=== PATIENT | male | born 1935 | race African-American/Black ===

== ENCOUNTER 2021-05-13 13:01 | Emergency (ER) | payer OTHER ==
[~2021-05-13] VITALS: Ht 182.9 cm; Wt 91.0 kg
[2021-05-13] MEDS ORDERED: SODIUM CHLORIDE 0.9% 1,000 ML IV ONE (13:30)
[2021-05-13 14:06] LABS: BASOPHILS % 0.7 % (0.0-2.0); EOSINOPHILS % 2.5 % (0.0-5.0); HEMATOCRIT. 26.7 % (42.0-52.0); HEMOGLOBIN. 8.8 g/dL (14.0-18.0); LYMPHOCYTES % 22.9 % (20.0-50.0); MEAN CORPUSCULAR HEMOGLOBIN 32.7 pg (28.0-32.0); MEAN CORPUSCULAR VOLUME 99.8 fL (80.0-94.0); MEAN PLATELET VOLUME 9.6 fl (7.4-10.4); MONOCYTES % 10.7 % (2.0-8.0); NEUTROPHILS % 63.2 % (40.0-76.0); PLATELET 131 x1000/uL (130-400); RED BLOOD CELL COUNT 2.67 mill/uL (4.7-6.1); RED CELL DISTRIBUTION WIDTH 14.9 % (11.6-14.6)
[2021-05-13 14:12] LABS: CHLORIDE 111 mEq/L (98-107)
[2021-05-13] MEDS ORDERED: INSULIN REGULAR (HUMULIN R) 300UNITS/3ML VIAL IV ONE (17:30)
[2021-05-13] MEDS ORDERED: SODIUM POLYSTYRENE SULFONATE 15 G/60 ML BOT PO ONE (17:30)
[2021-05-13] MEDS ORDERED: DEXTROSE 50% WATER 50ML SYRINGE IV ONE (17:30)
[2021-05-13 20:18] VITALS: BP 172/88
== END 2021-05-13 20:21 | disposition home or self-care (01) ==
LOC: ER 13:01
DX: I95.9 Hypotension, unspecified (principal); E11.22 Type 2 diabetes mellitus with diabetic chronic kidney disease; I12.9 Hypertensive chronic kidney disease with stage 1 through stage 4 chronic kidney disease, or unspecified chronic kidney disease; N18.9 Chronic kidney disease, unspecified; E87.5 Hyperkalemia
CPT/HCPCS: 36415; 80053; 82962; 84484; 85025; 93005; 96361; 96374; 96375; 99285; J1815; J7030

== ENCOUNTER 2021-08-18 13:50 | Emergency (ER) | payer BC, OTHER ==
[~2021-08-18] VITALS: Ht 182.9 cm; Wt 91.0 kg
[2021-08-18 15:02] LABS: CHLORIDE 114 mEq/L (98-107)
[2021-08-18 15:17] LABS: BASOPHILS % 0.3 % (0.0-2.0); EOSINOPHILS % 2.2 % (0.0-5.0); HEMATOCRIT. 31.1 % (42.0-52.0); HEMOGLOBIN. 9.9 g/dL (14.0-18.0); LYMPHOCYTES % 20.8 % (20.0-50.0); MEAN CORPUSCULAR HEMOGLOBIN 30.4 pg (28.0-32.0); MEAN CORPUSCULAR VOLUME 95.6 fL (80.0-94.0); MEAN PLATELET VOLUME 9.5 fl (7.4-10.4); MONOCYTES % 8.3 % (2.0-8.0); NEUTROPHILS % 68.4 % (40.0-76.0); PLATELET 140 x1000/uL (130-400); RED BLOOD CELL COUNT 3.25 mill/uL (4.7-6.1); RED CELL DISTRIBUTION WIDTH 14.7 % (11.6-14.6)
[2021-08-18 17:12] VITALS: BP 146/76
== END 2021-08-18 17:53 | disposition home or self-care (01) ==
LOC: ER 13:50
DX: T46.5X1A Poisoning by other antihypertensive drugs, accidental (unintentional), initial encounter (principal); R42 Dizziness and giddiness; R53.1 Weakness; I12.9 Hypertensive chronic kidney disease with stage 1 through stage 4 chronic kidney disease, or unspecified chronic kidney disease; N18.9 Chronic kidney disease, unspecified; D53.9 Nutritional anemia, unspecified; Y92.018 Other place in single-family (private) house as the place of occurrence of the external cause
CPT/HCPCS: 36415; 71045; 80053; 83880; 84484; 85025; 87426; 93005; 99285

== ENCOUNTER 2021-09-24 19:05 | Inpatient (IN) | payer BC, MEDICARE, OTHER ==
[~2021-09-24] VITALS: Ht 182.9 cm; Wt 85.7 kg
[~2021-09-24 19:05] MED LIST: ASPI81TA47 PO; ATOR10TA69 PO; CARV12.545 PO; DULO30CA52 PO; HYDR100T26 PO; LEVO100T9 PO; MAGN400T26 MT; PANT40TA51 PO
[2021-09-24] MEDS ORDERED: SODIUM CHLORIDE 0.9% 500 ML IV ONE (20:00)
[2021-09-24 20:19] LABS: BASOPHILS % 1.5 % (0.0-2.0); EOSINOPHILS % 4.3 % (0.0-5.0); HEMATOCRIT. 29.2 % (42.0-52.0); HEMOGLOBIN. 9.5 g/dL (14.0-18.0); LYMPHOCYTES % 21.8 % (20.0-50.0); MEAN CORPUSCULAR HEMOGLOBIN 31.5 pg (28.0-32.0); MEAN CORPUSCULAR VOLUME 96.3 fL (80.0-94.0); MEAN PLATELET VOLUME 9.3 fl (7.4-10.4); MONOCYTES % 7.7 % (2.0-8.0); NEUTROPHILS % 64.7 % (40.0-76.0); PLATELET 167 x1000/uL (130-400); RED BLOOD CELL COUNT 3.03 mill/uL (4.7-6.1); RED CELL DISTRIBUTION WIDTH 15.4 % (11.6-14.6)
[2021-09-24 20:20] LABS: CHLORIDE 117 mEq/L (98-107)
[2021-09-25 03:12] LABS: CLARITY URINE CLOUDY (CLEAR); COLOR URINE YELLOW (YELLOW); KETONES URINE NEGATIVE (NEGATIVE); LEUKOCYTE ESTERASE URINE 2+ (NEGATIVE); NITRITE URINE NEGATIVE (NEGATIVE); OCCULT BLOOD URINE NEGATIVE (NEGATIVE); PH URINE 5.5 (4.5-8.0); PROTEIN URINE 3+ (NEGATIVE); SPECIFIC GRAVITY URINE 1.015 (1.005-1.030); UROBILINOGEN URINE 0.2 E.U./dL (0.2-1.0)
[2021-09-25 09:30] VITALS: BP 183/84
[2021-09-25] MEDS ORDERED: ONDANSETRON HCL 4MG/2ML INJ IV PRN (09:30)
[2021-09-25] MEDS: AMLODIPINE 10MG TABLET PO SCH (10:29)
[2021-09-25] MEDS: HYDRALAZINE HCL 100MG TABLET PO SCH ×2 (10:30→20:34)
[2021-09-25] MEDS: ACETAMINOPHEN 325MG TABLET PO PRN (11:38)
[2021-09-25 12:00] VITALS: BP 173/82
[2021-09-25] MEDS: CARVEDILOL 3.125 MG TABLET PO SCH ×2 (13:24→20:34)
[2021-09-25 16:00] VITALS: BP 152/71
[2021-09-25 20:00] VITALS: BP 152/73
[2021-09-26] VITALS (7 sets, daily range): BP systolic 97–161; BP diastolic 49–85
[2021-09-26] MEDS: ACETAMINOPHEN 325MG TABLET PO PRN (02:28)
[2021-09-26] MEDS: ASPIRIN 81MG TABLET PO SCH (08:57)
[2021-09-26] MEDS: CARVEDILOL 3.125 MG TABLET PO SCH (08:58)
[2021-09-26] MEDS: AMLODIPINE 10MG TABLET PO SCH (08:58)
[2021-09-26] MEDS: HYDRALAZINE HCL 100MG TABLET PO SCH ×2 (08:58→21:07)
[2021-09-26] MEDS ORDERED: METOPROLOL TARTRATE 50MG TABLET PO SCH (10:00)
[2021-09-26 10:35] LABS: BASOPHILS % 0.6 % (0.0-2.0); EOSINOPHILS % 5.4 % (0.0-5.0); HEMATOCRIT. 28.6 % (42.0-52.0); HEMOGLOBIN. 9.6 g/dL (14.0-18.0); LYMPHOCYTES % 18.3 % (20.0-50.0); MEAN CORPUSCULAR HEMOGLOBIN 31.7 pg (28.0-32.0); MEAN CORPUSCULAR VOLUME 94.8 fL (80.0-94.0); MEAN PLATELET VOLUME 8.7 fl (7.4-10.4); MONOCYTES % 9.4 % (2.0-8.0); NEUTROPHILS % 66.3 % (40.0-76.0); PLATELET 154 x1000/uL (130-400); RED BLOOD CELL COUNT 3.02 mill/uL (4.7-6.1); RED CELL DISTRIBUTION WIDTH 15.1 % (11.6-14.6)
[2021-09-26 10:47] LABS: PHOSPHORUS 3.6 mg/dL (2.5-4.9)
[2021-09-26 14:24] LABS: BG BASE EXCESS -5.5 mmol/L (-2.0-2.0); BG CARBOXYHEMOGLOBIN 0.3 % (0.5-1.5); BG DEOXYHEMOGLOBIN 3.8 % (0.0-5.0); BG FRACTION INSPIRED OXYGEN 21; BG HCO3 ACT 18.9 mmol/L (22.0-26.0); BG METHEMOGLOBIN 0.3 % (0.0-1.5); BG OXYGEN SATURATION 96.2 % (92.0-98.5); BG OXYHEMOGLOBIN 95.6 % (94.0-97.0); BG PCO2 33.2 mmHg (35.0-45.0); BG PH 7.374 (7.350-7.450); BG PO2 90.9 mmHg (75.0-100.0); BG SAMPLE SITE RIGHT RADIAL; BG TOTAL HEMOGLOBIN 10.1 g/dL (12.0-18.0); BG VENT MODE ROOM AIR
[2021-09-26] MEDS ORDERED: EPOETIN ALFA 4000UNITS/ML VIAL SUBCUT SCH (21:00)
[2021-09-26] MEDS: METOPROLOL TARTRATE 25MG TABLET PO SCH (21:07)
[2021-09-27] VITALS: BP 111/78
[2021-09-27 04:00] VITALS: BP 138/68
[2021-09-27 07:46] LABS: HEMATOCRIT. 30.2 % (42.0-52.0); HEMOGLOBIN. 10.2 g/dL (14.0-18.0); MEAN CORPUSCULAR HEMOGLOBIN 31.8 pg (28.0-32.0); MEAN PLATELET VOLUME 9.6 fl (7.4-10.4); PLATELET 161 x1000/uL (130-400); RED BLOOD CELL COUNT 3.22 mill/uL (4.7-6.1); RED CELL DISTRIBUTION WIDTH 15.1 % (11.6-14.6)
[2021-09-27 08:00] VITALS: BP_SYST 109; BP_SYST 122; BP_DIAS 76; BP_DIAS 83
[2021-09-27 08:05] LABS: PHOSPHORUS 4.1 mg/dL (2.5-4.9)
[2021-09-27] MEDS: AMLODIPINE 10MG TABLET PO SCH ×2 (09:00→16:20)
[2021-09-27] MEDS: METOPROLOL TARTRATE 25MG TABLET PO SCH (09:00)
[2021-09-27] MEDS: HYDRALAZINE HCL 100MG TABLET PO SCH ×2 (09:00→20:40)
[2021-09-27] MEDS: ASPIRIN 81MG TABLET PO SCH (09:28)
[2021-09-27] MEDS ORDERED: SODIUM POLYSTYRENE SULFONATE 15 G/60 ML BOT PO NR (09:45)
[2021-09-27 11:18] LABS: T4 FREE 1.27 ng/dL (0.76-1.46)
[2021-09-27 12:00] VITALS: BP 151/78
[2021-09-27 16:00] VITALS: BP 164/79
[2021-09-27] MEDS: AMIODARONE HCL 200 MG TABLET PO SCH (16:21)
[2021-09-27 16:33] LABS: PLATELET ESTIMATE NORMAL
[2021-09-27 20:00] VITALS: BP_SYST 134; BP_SYST 159; BP_DIAS 61; BP_DIAS 75
[2021-09-27] MEDS: ACETAMINOPHEN 325MG TABLET PO PRN (20:43)
[2021-09-27] MEDS ORDERED: CEFTRIAXONE 1 G PREMIX 50 ML IV SCH (22:00)
[2021-09-28] VITALS: BP 153/80
[2021-09-28] MEDS: CEFTRIAXONE 1,000 MG in DEXTROSE 5% WATER 50 ML IV SCH ×2 (00:21→20:31)
[2021-09-28 04:00] VITALS: BP 135/61
[2021-09-28 07:44] LABS: BASOPHILS % 0.7 % (0.0-2.0); EOSINOPHILS % 5.8 % (0.0-5.0); HEMATOCRIT. 29.4 % (42.0-52.0); HEMOGLOBIN. 9.8 g/dL (14.0-18.0); LYMPHOCYTES % 28.5 % (20.0-50.0); MEAN CORPUSCULAR HEMOGLOBIN 31.7 pg (28.0-32.0); MEAN CORPUSCULAR VOLUME 94.7 fL (80.0-94.0); MEAN PLATELET VOLUME 9.3 fl (7.4-10.4); PLATELET 163 x1000/uL (130-400)
[2021-09-28 08:00] VITALS: BP 143/75
[2021-09-28] MEDS: ASPIRIN 81MG TABLET PO SCH (08:11)
[2021-09-28] MEDS: AMIODARONE HCL 200 MG TABLET PO SCH (08:12)
[2021-09-28] MEDS: HYDRALAZINE HCL 100MG TABLET PO SCH (08:12)
[2021-09-28] MEDS: AMLODIPINE 10MG TABLET PO SCH (08:12)
[2021-09-28 12:00] VITALS: BP_SYST 132; BP_SYST 133; BP_SYST 84; BP_DIAS 50; BP_DIAS 66; BP_DIAS 68
[2021-09-28 16:00] VITALS: BP 157/77
[2021-09-28 20:00] VITALS: BP_SYST 118; BP_SYST 140; BP_DIAS 80; BP_DIAS 82
[2021-09-28] MEDS: HYDRALAZINE HCL 50MG TABLET PO SCH (20:30)
[2021-09-29] VITALS (7 sets, daily range): BP systolic 99–157; BP diastolic 52–79
[2021-09-29] MEDS: ASPIRIN 81MG TABLET PO SCH (09:29)
[2021-09-29] MEDS: HYDRALAZINE HCL 50MG TABLET PO SCH ×2 (09:30→21:25)
[2021-09-29] MEDS: AMLODIPINE 10MG TABLET PO SCH (09:30)
[2021-09-29] MEDS: AMIODARONE HCL 200 MG TABLET PO SCH (09:30)
[2021-09-29] MEDS ORDERED: AMLO10TA80 PO ×2 (09:51)
[2021-09-29] MEDS ORDERED: CARV6.2548 MT (09:51)
[2021-09-29] MEDS ORDERED: HYDR-4135 PO (09:51)
[2021-09-29] MEDS ORDERED: AMI2 PO (09:52)
[2021-09-29 19:05] LABS: VITAMIN B12 SERUM 846 pg/mL (211-911)
[2021-09-29] MEDS: CEFTRIAXONE 1,000 MG in DEXTROSE 5% WATER 50 ML IV SCH (23:35)
[2021-09-30] VITALS (7 sets, daily range): BP systolic 103–146; BP diastolic 62–78
[2021-09-30] MEDS: AMLODIPINE 10MG TABLET PO SCH (08:46)
[2021-09-30] MEDS: HYDRALAZINE HCL 50MG TABLET PO SCH (08:46)
[2021-09-30] MEDS: AMIODARONE HCL 200 MG TABLET PO SCH (09:49)
[2021-09-30] MEDS: ASPIRIN 81MG TABLET PO SCH (09:53)
[2021-09-30] MEDS: ACETAMINOPHEN 325MG TABLET PO PRN (17:11)
[2021-09-30] MEDS: CEFTRIAXONE 1,000 MG in DEXTROSE 5% WATER 50 ML IV SCH (22:29)
[2021-09-30] MEDS ORDERED: MAGNESIUM/ALUMINUM HYDROXIDE/SIMETHICONE 30ML UDC PO PRN (22:45)
[2021-10-01] VITALS: BP 127/70
[2021-10-01 04:00] VITALS: BP 150/85
[2021-10-01 08:00] VITALS: BP_SYST 105; BP_SYST 139; BP_SYST 77; BP_DIAS 47; BP_DIAS 68; BP_DIAS 80
[2021-10-01] MEDS: AMIODARONE HCL 200 MG TABLET PO SCH (09:54)
[2021-10-01] MEDS: ASPIRIN 81MG TABLET PO SCH (09:54)
[2021-10-01 12:00] VITALS: BP_SYST 113; BP_SYST 88; BP_SYST 95; BP_DIAS 54; BP_DIAS 57; BP_DIAS 71
[2021-10-01] MEDS: MIDODRINE HCL 5MG TABLET PO SCH ×2 (14:53→18:33)
[2021-10-01 16:00] VITALS: BP_SYST 113; BP_SYST 124; BP_SYST 169; BP_DIAS 60; BP_DIAS 79; BP_DIAS 88
[2021-10-01 20:00] VITALS: BP_SYST 122; BP_SYST 126; BP_SYST 162; BP_DIAS 71; BP_DIAS 78; BP_DIAS 83
[2021-10-01] MEDS: CEFTRIAXONE 1,000 MG in DEXTROSE 5% WATER 50 ML IV SCH (22:07)
[2021-10-02] VITALS: BP 141/75
[2021-10-02 04:00] VITALS: BP 128/63
[2021-10-02 08:00] VITALS: BP_SYST 117; BP_SYST 130; BP_SYST 85; BP_DIAS 50; BP_DIAS 69; BP_DIAS 75
[2021-10-02] MEDS ORDERED: MIDODRINE HCL 2.5MG TABLET PO SCH ×2 (09:00→13:00)
[2021-10-02] MEDS: ASPIRIN 81MG TABLET PO SCH (10:03)
[2021-10-02] MEDS: AMIODARONE HCL 200 MG TABLET PO SCH (10:03)
[2021-10-02 12:00] VITALS: BP_SYST 142; BP_SYST 154; BP_SYST 92; BP_DIAS 53; BP_DIAS 73; BP_DIAS 84
[2021-10-02 16:00] VITALS: BP_SYST 114; BP_SYST 152; BP_SYST 84; BP_DIAS 49; BP_DIAS 72; BP_DIAS 77
[2021-10-02 18:11] VITALS: BP 114/72
== END 2021-10-02 18:45 | disposition home health service (06) | DRG 73 ==
LOC: ER 19:05 → EDBEDREQTM 22:26 → EDBEDREQ 22:26 → MICUSO 22:31 → 8WST 09-25 09:37
PROVIDERS: ADMIT Internal Medicine; ATTEND Internal Medicine
PROC: 4A10X4Z Monitoring of Central Nervous Electrical Activity, External Approach (ICD-10-PCS; principal; 2021-09-30)
DX: G90.8 Other disorders of autonomic nervous system (principal); R65.11 Systemic inflammatory response syndrome (SIRS) of non-infectious origin with acute organ dysfunction; I13.0 Hypertensive heart and chronic kidney disease with heart failure and stage 1 through stage 4 chronic kidney disease, or unspecified chronic kidney disease; I50.32 Chronic diastolic (congestive) heart failure; E44.0 Moderate protein-calorie malnutrition; N17.9 Acute kidney failure, unspecified; N18.4 Chronic kidney disease, stage 4 (severe); N39.0 Urinary tract infection, site not specified; E87.8 Other disorders of electrolyte and fluid balance, not elsewhere classified; D64.9 Anemia, unspecified; E11.22 Type 2 diabetes mellitus with diabetic chronic kidney disease; E03.9 Hypothyroidism, unspecified; E78.5 Hyperlipidemia, unspecified; I48.0 Paroxysmal atrial fibrillation; Z20.822 Contact with and (suspected) exposure to COVID-19; E11.43 Type 2 diabetes mellitus with diabetic autonomic (poly)neuropathy; I27.20 Pulmonary hypertension, unspecified; I34.0 Nonrheumatic mitral (valve) insufficiency; I95.1 Orthostatic hypotension; Z82.49 Family history of ischemic heart disease and other diseases of the circulatory system; Z86.73 Personal history of transient ischemic attack (TIA), and cerebral infarction without residual deficits; Z83.3 Family history of diabetes mellitus; Z90.49 Acquired absence of other specified parts of digestive tract; Z79.899 Other long term (current) drug therapy; Z79.82 Long term (current) use of aspirin; Z68.25 Body mass index [BMI] 25.0-25.9, adult; Z87.19 Personal history of other diseases of the digestive system
CPT/HCPCS: 36415; 36600; 70551; 71045; 76770; 80048; 80053; 81003; 82375; 82550; 82607; 82805; 83735; 83880; 84100; 84439; 84443; 84484; 85025; 87426; 93005; 93306; 93880; 95816; 97110; 97162; 97166; 97530; 99285; J0696; J0885; J7040; J7060

== ENCOUNTER 2022-02-17 21:46 | Inpatient (IN) | payer MEDICARE ==
[~2022-02-17] VITALS: Ht 172.7 cm; Wt 92.6 kg
[~2022-02-17 21:46] MED LIST changes: +AMI2 PO; -CARV12.545 PO; +CARV6.2548 MT; +HYDR-4135 PO; -HYDR100T26 PO
[2022-02-17] MEDS ORDERED: FUROSEMIDE 40MG/4ML VIAL IV ONE (22:00)
[2022-02-17] MEDS ORDERED: NITROGLYCERIN 0.4MG TABLET SL SL PRN (22:00)
[2022-02-17 22:28] LABS: CHLORIDE 110 mEq/L (98-107)
[2022-02-17] MEDS ORDERED: FUROSEMIDE 100MG/10ML VIAL IV NR (22:36)
[2022-02-17 22:40] LABS: BASOPHILS % 0.2 % (0.0-2.0); EOSINOPHILS % 0.4 % (0.0-5.0); HEMATOCRIT. 26.2 % (42.0-52.0); HEMOGLOBIN. 8.5 g/dL (14.0-18.0); LYMPHOCYTES % 15.2 % (20.0-50.0); MEAN CORPUSCULAR HEMOGLOBIN 31.4 pg (28.0-32.0); MEAN CORPUSCULAR VOLUME 97.2 fL (80.0-94.0); MEAN PLATELET VOLUME 9.7 fl (7.4-10.4); MONOCYTES % 6.5 % (2.0-8.0); NEUTROPHILS % 77.7 % (40.0-76.0); PLATELET 191 x1000/uL (130-400); RED BLOOD CELL COUNT 2.69 mill/uL (4.7-6.1); RED CELL DISTRIBUTION WIDTH 16.1 % (11.6-14.6)
[2022-02-17] MEDS ORDERED: INSULIN REGULAR (HUMULIN R) 300UNITS/3ML VIAL IV NR (22:45)
[2022-02-17] MEDS ORDERED: DEXTROSE 50% WATER 50ML SYRINGE IV NR (22:45)
[2022-02-17] MEDS ORDERED: SODIUM BICARBONATE 8.4% 1 MEQ/ML 50ML SYR IV NR (22:45)
[2022-02-17] MEDS ORDERED: ALBUTEROL (0.083%) 2.5MG/3ML NEB HHN NR (22:45)
[2022-02-17] MEDS ORDERED: CALCIUM CHLORIDE 1GM/10ML SYR IV NR (22:45)
[2022-02-18] VITALS (13 sets, daily range): BP systolic 118–139; BP diastolic 64–85
[2022-02-18] MEDS ORDERED: NALOXONE HCL 0.4MG/ML VIAL IV PRN (04:30)
[2022-02-18] MEDS: HYDRALAZINE HCL 50MG TABLET PO SCH ×3 (05:34→21:58)
[2022-02-18 06:19] LABS: BASOPHILS % 0.2 % (0.0-2.0); EOSINOPHILS % 0.1 % (0.0-5.0); HEMOGLOBIN. 8.7 g/dL (14.0-18.0); LYMPHOCYTES % 14.5 % (20.0-50.0); MEAN CORPUSCULAR HEMOGLOBIN 32.1 pg (28.0-32.0); MEAN CORPUSCULAR VOLUME 96.1 fL (80.0-94.0); MEAN PLATELET VOLUME 9.4 fl (7.4-10.4); MONOCYTES % 6.6 % (2.0-8.0); NEUTROPHILS % 78.6 % (40.0-76.0); PLATELET 178 x1000/uL (130-400); RED CELL DISTRIBUTION WIDTH 15.9 % (11.6-14.6)
[2022-02-18 06:35] LABS: CHLORIDE 112 mEq/L (98-107)
[2022-02-18 06:57] LABS: HDL CHOLESTEROL 33 mg/dL (40-59); LDL CHOLESTEROL 63 mg/dL (5-100)
[2022-02-18] MEDS: CARVEDILOL 6.25 MG TABLET PO SCH ×2 (09:00→21:58)
[2022-02-18] MEDS: ASPIRIN 81MG TABLET PO SCH (09:11)
[2022-02-18] MEDS: AMIODARONE HCL 200 MG TABLET PO SCH (09:11)
[2022-02-18] MEDS: PANTOPRAZOLE 40MG DR TABLET PO SCH (09:12)
[2022-02-18] MEDS: DULOXETINE HCL 30MG DR CAPSULE PO SCH (09:32)
[2022-02-18 09:47] LABS: BG BASE EXCESS -9.3 mmol/L (-2.0-2.0); BG CARBOXYHEMOGLOBIN 0.3 % (0.5-1.5); BG DEOXYHEMOGLOBIN 6.2 % (0.0-5.0); BG FRACTION INSPIRED OXYGEN 55; BG HCO3 ACT 15.9 mmol/L (22.0-26.0); BG METHEMOGLOBIN 0.3 % (0.0-1.5); BG OXYGEN SATURATION 93.8 % (92.0-98.5); BG OXYHEMOGLOBIN 93.2 % (94.0-97.0); BG PCO2 32.3 mmHg (35.0-45.0); BG PH 7.311 (7.350-7.450); BG PO2 75.7 mmHg (75.0-100.0); BG SAMPLE SITE RIGHT RADIAL; BG TOTAL RESPIRATORY RATE 26 b/min; BG VENT MODE MASK - BIPAP
[2022-02-18] MEDS: LEVOTHYROXINE SODIUM 100MCG TABLET PO SCH (10:25)
[2022-02-18] MEDS: ACETAMINOPHEN 325MG TABLET PO PRN ×2 (10:27→19:54)
[2022-02-18] MEDS ORDERED: CEFTRIAXONE 1 G PREMIX 50 ML IV SCH (15:15)
[2022-02-18] MEDS ORDERED: AZITHROMYCIN 500MG/250ML 250 ML IV SCH (15:15)
[2022-02-18] MEDS: CEFTRIAXONE 1,000 MG in DEXTROSE 5% WATER 50 ML IV SCH (16:06)
[2022-02-18] MEDS: IPRATROPIUM/ALBUTEROL 0.5-3(2.5)MG/3ML NEB HHN PRN (16:46)
[2022-02-18] MEDS: AZITHROMYCIN 500MG in DEXTROSE 5% WATER 250ML IV SCH (17:07)
[2022-02-18] MEDS ORDERED: SODIUM POLYSTYRENE SULFONATE 15 G/60 ML BOT PO NR (18:44)
[2022-02-18] MEDS: IPRATROPIUM/ALBUTEROL 0.5-3(2.5)MG/3ML NEB HHN SCH (20:38)
[2022-02-18] MEDS: HYDROCODONE/ACETAMINOPHEN 5/325MG TABLET PO PRN (21:56)
[2022-02-18] MEDS: ATORVASTATIN CALCIUM 10MG TABLET PO SCH (21:58)
[2022-02-18 22:03] LABS: CHLORIDE 112 mEq/L (98-107)
[2022-02-18 22:11] LABS: TOTAL IRON BINDING CAPACITY 332 ug/dL (250-450)
[2022-02-19] VITALS (12 sets, daily range): BP systolic 103–139; BP diastolic 62–76
[2022-02-19] MEDS: IPRATROPIUM/ALBUTEROL 0.5-3(2.5)MG/3ML NEB HHN SCH ×4 (01:54→20:04)
[2022-02-19] MEDS: HYDRALAZINE HCL 50MG TABLET PO SCH ×3 (05:22→21:14)
[2022-02-19] MEDS: HYDROCODONE/ACETAMINOPHEN 5/325MG TABLET PO PRN (05:23)
[2022-02-19 06:30] LABS: BASOPHILS % 0.3 % (0.0-2.0); EOSINOPHILS % 0.3 % (0.0-5.0); HEMATOCRIT. 25.1 % (42.0-52.0); HEMOGLOBIN. 8.2 g/dL (14.0-18.0); LYMPHOCYTES % 12.3 % (20.0-50.0); MEAN CORPUSCULAR VOLUME 98.5 fL (80.0-94.0); MEAN PLATELET VOLUME 9.4 fl (7.4-10.4); MONOCYTES % 4.8 % (2.0-8.0); NEUTROPHILS % 82.3 % (40.0-76.0); PLATELET 177 x1000/uL (130-400); RED BLOOD CELL COUNT 2.55 mill/uL (4.7-6.1); RED CELL DISTRIBUTION WIDTH 15.9 % (11.6-14.6)
[2022-02-19] MEDS: ASPIRIN 81MG TABLET PO SCH (08:52)
[2022-02-19] MEDS: PANTOPRAZOLE 40MG DR TABLET PO SCH (08:52)
[2022-02-19] MEDS: DULOXETINE HCL 30MG DR CAPSULE PO SCH (08:52)
[2022-02-19] MEDS: AMIODARONE HCL 200 MG TABLET PO SCH (08:53)
[2022-02-19] MEDS: AZITHROMYCIN 500MG in DEXTROSE 5% WATER 250ML IV SCH (08:53)
[2022-02-19] MEDS: LEVOTHYROXINE SODIUM 100MCG TABLET PO SCH (08:53)
[2022-02-19] MEDS: CARVEDILOL 6.25 MG TABLET PO SCH ×2 (09:00→21:14)
[2022-02-19] MEDS ORDERED: IRON SUCROSE COMPLEX 100 MG/5 ML ML IV SCH (09:00)
[2022-02-19] MEDS: ACETAMINOPHEN 325MG TABLET PO PRN ×2 (11:40→18:08)
[2022-02-19 11:57] LABS: INR 1.1; PROTHROMBIN TIME 11.4 sec (9.6-11.0)
[2022-02-19] MEDS ORDERED: LIDOCAINE HCL 1% 10 MG/ML 10ML VIAL ONE (12:16)
[2022-02-19 13:32] LABS: HEPATITIS B SURFACE ANTIGEN NEGATIVE
[2022-02-19] MEDS: CEFTRIAXONE 1,000 MG in DEXTROSE 5% WATER 50 ML IV SCH (16:23)
[2022-02-19] MEDS: ATORVASTATIN CALCIUM 10MG TABLET PO SCH (21:14)
[2022-02-20] VITALS (44 sets, daily range): BP systolic 90–130; BP diastolic 44–90
[2022-02-20] MEDS: IPRATROPIUM/ALBUTEROL 0.5-3(2.5)MG/3ML NEB HHN SCH ×4 (01:12→19:37)
[2022-02-20] MEDS: HYDRALAZINE HCL 50MG TABLET PO SCH ×3 (05:11→21:09)
[2022-02-20] MEDS: ACETAMINOPHEN 325MG TABLET PO PRN (06:06)
[2022-02-20 07:14] LABS: BASOPHILS % 0.2 % (0.0-2.0); EOSINOPHILS % 0.2 % (0.0-5.0); HEMOGLOBIN. 7.6 g/dL (14.0-18.0); LYMPHOCYTES % 9.2 % (20.0-50.0); MEAN CORPUSCULAR HEMOGLOBIN 32.1 pg (28.0-32.0); MEAN CORPUSCULAR VOLUME 97.2 fL (80.0-94.0); MEAN PLATELET VOLUME 9.7 fl (7.4-10.4); MONOCYTES % 3.4 % (2.0-8.0); PLATELET 162 x1000/uL (130-400); RED BLOOD CELL COUNT 2.36 mill/uL (4.7-6.1); RED CELL DISTRIBUTION WIDTH 15.5 % (11.6-14.6)
[2022-02-20 11:45] LABS: FOLIC ACID (FOLATE) SERUM 9.6 ng/mL (>5.38)
[2022-02-20] MEDS: AZITHROMYCIN 500MG in DEXTROSE 5% WATER 250ML IV SCH (11:45)
[2022-02-20] MEDS: DULOXETINE HCL 30MG DR CAPSULE PO SCH (11:46)
[2022-02-20] MEDS: AMIODARONE HCL 200 MG TABLET PO SCH (11:46)
[2022-02-20] MEDS: CARVEDILOL 6.25 MG TABLET PO SCH ×2 (11:46→20:45)
[2022-02-20] MEDS: FAMOTIDINE 20MG TABLET PO SCH (11:46)
[2022-02-20] MEDS: LEVOTHYROXINE SODIUM 100MCG TABLET PO SCH (12:05)
[2022-02-20 13:39] LABS: BG CARBOXYHEMOGLOBIN 0.3 % (0.5-1.5); BG DEOXYHEMOGLOBIN 4.1 % (0.0-5.0); BG FRACTION INSPIRED OXYGEN 100; BG HCO3 ACT 24.4 mmol/L (22.0-26.0); BG OXYGEN SATURATION 95.9 % (92.0-98.5); BG OXYHEMOGLOBIN 95.6 % (94.0-97.0); BG PCO2 38.3 mmHg (35.0-45.0); BG PH 7.422 (7.350-7.450); BG PO2 85.6 mmHg (75.0-100.0); BG SAMPLE SITE RIGHT RADIAL; BG TOTAL HEMOGLOBIN 8.7 g/dL (12.0-18.0); BG VENT MODE MASK - BIPAP
[2022-02-20] MEDS ORDERED: FENTANYL 2500MCG/250ML PMX 250 ML IV ONE (14:15)
[2022-02-20] MEDS ORDERED: MORPHINE SULFATE 4 MG/ML CPJ (NOT FOR IM USE) IV SCH (14:30)
[2022-02-20 15:22] LABS: BG BASE EXCESS 0.2 mmol/L (-2.0-2.0); BG CARBOXYHEMOGLOBIN 0.3 % (0.5-1.5); BG DEOXYHEMOGLOBIN 11.8 % (0.0-5.0); BG FRACTION INSPIRED OXYGEN 100; BG HCO3 ACT 25.7 mmol/L (22.0-26.0); BG OXYGEN SATURATION 88.2 % (92.0-98.5); BG OXYHEMOGLOBIN 87.9 % (94.0-97.0); BG PCO2 45.5 mmHg (35.0-45.0); BG PH 7.369 (7.350-7.450); BG PO2 57.5 mmHg (75.0-100.0); BG SAMPLE SITE RIGHT RADIAL; BG TOTAL HEMOGLOBIN 8.1 g/dL (12.0-18.0); BG VENT MODE VENT - AC
[2022-02-20] MEDS: PROPOFOL 10MG/ML 100ML 100 ML IV PRN ×2 (15:32→18:08)
[2022-02-20] MEDS ORDERED: FENTANYL CITRATE 2,500 MCG in SODIUM CHLORIDE 0.9% 200 ML IV PRN (16:00)
[2022-02-20] MEDS: CEFTRIAXONE 1,000 MG in DEXTROSE 5% WATER 50 ML IV SCH (16:16)
[2022-02-20] MEDS: FENTANYL 2500MCG/250ML PMX 250 ML IV PRN (16:34)
[2022-02-20 18:44] LABS: BG BASE EXCESS 0.7 mmol/L (-2.0-2.0); BG FRACTION INSPIRED OXYGEN 100; BG HCO3 ACT 26.6 mmol/L (22.0-26.0); BG PO2 95.6 mmHg (75.0-100.0); BG SAMPLE SITE RIGHT RADIAL; BG TOTAL RESPIRATORY RATE 0 b/min; BG VENT MODE VENT - AC
[2022-02-20] MEDS: ATORVASTATIN CALCIUM 10MG TABLET PO SCH (20:44)
[2022-02-21] VITALS (70 sets, daily range): BP systolic 82–158; BP diastolic 47–81
[2022-02-21] MEDS: PROPOFOL 10MG/ML 100ML 100 ML IV PRN (00:29)
[2022-02-21] MEDS: IPRATROPIUM/ALBUTEROL 0.5-3(2.5)MG/3ML NEB HHN SCH ×4 (02:00→20:26)
[2022-02-21] MEDS: NOREPINEPHRINE 32 MG in DEXT 5% WATER 218 ML IV PRN (04:02)
[2022-02-21 05:14] LABS: BASOPHILS % 0.1 % (0.0-2.0); EOSINOPHILS % 0.4 % (0.0-5.0); HEMATOCRIT. 27.8 % (42.0-52.0); HEMOGLOBIN. 9.1 g/dL (14.0-18.0); LYMPHOCYTES % 15.3 % (20.0-50.0); MEAN CORPUSCULAR HEMOGLOBIN 31.6 pg (28.0-32.0); MEAN PLATELET VOLUME 9.3 fl (7.4-10.4); MONOCYTES % 2.1 % (2.0-8.0); NEUTROPHILS % 82.1 % (40.0-76.0); PLATELET 158 x1000/uL (130-400); RED BLOOD CELL COUNT 2.87 mill/uL (4.7-6.1); RED CELL DISTRIBUTION WIDTH 15.4 % (11.6-14.6)
[2022-02-21] MEDS: LEVOTHYROXINE SODIUM 100MCG TABLET PO SCH (05:36)
[2022-02-21] MEDS: HYDRALAZINE HCL 50MG TABLET PO SCH ×3 (05:37→21:44)
[2022-02-21 07:59] LABS: BG BASE EXCESS -0.1 mmol/L (-2.0-2.0); BG CARBOXYHEMOGLOBIN 0.2 % (0.5-1.5); BG DEOXYHEMOGLOBIN 0.7 % (0.0-5.0); BG HCO3 ACT 27.6 mmol/L (22.0-26.0); BG METHEMOGLOBIN 0.2 % (0.0-1.5); BG OXYGEN SATURATION 99.3 % (92.0-98.5); BG OXYHEMOGLOBIN 98.9 % (94.0-97.0); BG PCO2 64.2 mmHg (35.0-45.0); BG PH 7.252 (7.350-7.450); BG PO2 296.4 mmHg (75.0-100.0); BG SAMPLE SITE RIGHT RADIAL; BG TOTAL HEMOGLOBIN 8.4 g/dL (12.0-18.0); BG VENT MODE VENT - AC
[2022-02-21] MEDS ORDERED: DOPAMINE 400MG/250ML PREMIX 250 ML IV PRN (08:15)
[2022-02-21] MEDS: DULOXETINE HCL 30MG DR CAPSULE PO SCH (09:00)
[2022-02-21] MEDS: FAMOTIDINE 20MG TABLET PO SCH (09:00)
[2022-02-21] MEDS: AMIODARONE HCL 200 MG TABLET PO SCH (09:00)
[2022-02-21] MEDS: CARVEDILOL 6.25 MG TABLET PO SCH ×2 (09:00→20:10)
[2022-02-21] MEDS: AZITHROMYCIN 500MG in DEXTROSE 5% WATER 250ML IV SCH (09:22)
[2022-02-21 09:40] LABS: BG BASE EXCESS -2.9 mmol/L (-2.0-2.0); BG CARBOXYHEMOGLOBIN 0.3 % (0.5-1.5); BG DEOXYHEMOGLOBIN 6.7 % (0.0-5.0); BG HCO3 ACT 24.5 mmol/L (22.0-26.0); BG METHEMOGLOBIN 0.1 % (0.0-1.5); BG OXYGEN SATURATION 93.3 % (92.0-98.5); BG OXYHEMOGLOBIN 92.9 % (94.0-97.0); BG PCO2 56.3 mmHg (35.0-45.0); BG PH 7.256 (7.350-7.450); BG PO2 79.4 mmHg (75.0-100.0); BG SAMPLE SITE RIGHT RADIAL; BG TOTAL HEMOGLOBIN 9.5 g/dL (12.0-18.0); BG VENT MODE VENT - AC
[2022-02-21] MEDS: CEFTRIAXONE 1,000 MG in DEXTROSE 5% WATER 50 ML IV SCH (16:32)
[2022-02-21] MEDS: ATORVASTATIN CALCIUM 10MG TABLET PO SCH (21:59)
[2022-02-22] VITALS (96 sets, daily range): BP systolic 95–131; BP diastolic 53–70
[2022-02-22] MEDS: IPRATROPIUM/ALBUTEROL 0.5-3(2.5)MG/3ML NEB HHN SCH ×4 (01:07→20:41)
[2022-02-22] MEDS: HYDRALAZINE HCL 50MG TABLET PO SCH ×3 (05:45→21:54)
[2022-02-22 06:08] LABS: CHLORIDE 104 mEq/L (98-107)
[2022-02-22] MEDS: LEVOTHYROXINE SODIUM 100MCG TABLET PO SCH (06:08)
[2022-02-22 06:12] LABS: HEMATOCRIT. 22.3 % (42.0-52.0); HEMOGLOBIN. 7.4 g/dL (14.0-18.0); MEAN CORPUSCULAR HEMOGLOBIN 32.2 pg (28.0-32.0); MEAN CORPUSCULAR VOLUME 96.8 fL (80.0-94.0); MEAN PLATELET VOLUME 9.6 fl (7.4-10.4); PLATELET 143 x1000/uL (130-400); RED BLOOD CELL COUNT 2.31 mill/uL (4.7-6.1); RED CELL DISTRIBUTION WIDTH 15.4 % (11.6-14.6)
[2022-02-22 06:21] LABS: PHOSPHORUS 5.9 mg/dL (2.5-4.9)
[2022-02-22 08:08] LABS: BG BASE EXCESS 0.9 mmol/L (-2.0-2.0); BG CARBOXYHEMOGLOBIN 0.5 % (0.5-1.5); BG DEOXYHEMOGLOBIN 0.5 % (0.0-5.0); BG HCO3 ACT 26.1 mmol/L (22.0-26.0); BG METHEMOGLOBIN 0.3 % (0.0-1.5); BG OXYGEN SATURATION 99.5 % (92.0-98.5); BG OXYHEMOGLOBIN 98.7 % (94.0-97.0); BG PCO2 45.1 mmHg (35.0-45.0); BG PH 7.381 (7.350-7.450); BG PO2 324.2 mmHg (75.0-100.0); BG SAMPLE SITE RIGHT RADIAL; BG TOTAL HEMOGLOBIN 7.2 g/dL (12.0-18.0); BG VENT MODE VENT - AC
[2022-02-22] MEDS: AMIODARONE HCL 200 MG TABLET PO SCH (08:55)
[2022-02-22] MEDS: AZITHROMYCIN 500MG in DEXTROSE 5% WATER 250ML IV SCH (08:55)
[2022-02-22] MEDS: DULOXETINE HCL 30MG DR CAPSULE PO SCH (08:55)
[2022-02-22] MEDS: FAMOTIDINE 20MG TABLET PO SCH (08:55)
[2022-02-22] MEDS: CARVEDILOL 6.25 MG TABLET PO SCH ×2 (09:00→21:52)
[2022-02-22 09:49] LABS: NUCLEATED RED BLOOD CELLS 2 /100 WBC; PLATELET ESTIMATE NORMAL
[2022-02-22] MEDS: CEFTRIAXONE 1,000 MG in DEXTROSE 5% WATER 50 ML IV SCH (15:28)
[2022-02-22] MEDS: FENTANYL 2500MCG/250ML PMX 250 ML IV PRN (15:29)
[2022-02-22 15:31] LABS: HEMATOCRIT 23.2 % (42.0-52.0); HEMOGLOBIN 7.6 g/dL (14.0-18.0)
[2022-02-22] MEDS: HYDROCODONE/ACETAMINOPHEN 5/325MG TABLET PO PRN (21:53)
[2022-02-22] MEDS: ATORVASTATIN CALCIUM 10MG TABLET PO SCH (21:54)
[2022-02-23] VITALS (92 sets, daily range): BP systolic 83–169; BP diastolic 46–99
[2022-02-23 05:08] LABS: BASOPHILS % 0.3 % (0.0-2.0); EOSINOPHILS % 2.5 % (0.0-5.0); HEMOGLOBIN. 7.4 g/dL (14.0-18.0); LYMPHOCYTES % 9.4 % (20.0-50.0); MEAN CORPUSCULAR HEMOGLOBIN 31.4 pg (28.0-32.0); MEAN CORPUSCULAR VOLUME 97.5 fL (80.0-94.0); MEAN PLATELET VOLUME 8.9 fl (7.4-10.4); MONOCYTES % 3.8 % (2.0-8.0); PLATELET 133 x1000/uL (130-400); RED BLOOD CELL COUNT 2.36 mill/uL (4.7-6.1); RED CELL DISTRIBUTION WIDTH 15.2 % (11.6-14.6)
[2022-02-23 05:37] LABS: PHOSPHORUS 5.2 mg/dL (2.5-4.9)
[2022-02-23] MEDS: LEVOTHYROXINE SODIUM 100MCG TABLET PO SCH (06:38)
[2022-02-23] MEDS: HYDRALAZINE HCL 50MG TABLET PO SCH ×3 (06:39→21:58)
[2022-02-23] MEDS: IPRATROPIUM/ALBUTEROL 0.5-3(2.5)MG/3ML NEB HHN SCH ×4 (07:36→20:15)
[2022-02-23] MEDS: FAMOTIDINE 20MG TABLET PO SCH (08:36)
[2022-02-23] MEDS: DULOXETINE HCL 30MG DR CAPSULE PO SCH (08:36)
[2022-02-23] MEDS: AMIODARONE HCL 200 MG TABLET PO SCH (08:36)
[2022-02-23 08:58] LABS: BG CARBOXYHEMOGLOBIN 0.3 % (0.5-1.5); BG DEOXYHEMOGLOBIN 1.7 % (0.0-5.0); BG FRACTION INSPIRED OXYGEN 40; BG HCO3 ACT 26.2 mmol/L (22.0-26.0); BG METHEMOGLOBIN 0.9 % (0.0-1.5); BG OXYGEN SATURATION 98.3 % (92.0-98.5); BG OXYHEMOGLOBIN 97.1 % (94.0-97.0); BG PCO2 51.4 mmHg (35.0-45.0); BG PH 7.326 (7.350-7.450); BG PO2 150.6 mmHg (75.0-100.0); BG SAMPLE SITE RIGHT RADIAL; BG TOTAL HEMOGLOBIN 7.8 g/dL (12.0-18.0); BG VENT MODE VENT - AC
[2022-02-23] MEDS: CARVEDILOL 6.25 MG TABLET PO SCH ×2 (09:00→21:58)
[2022-02-23] MEDS ORDERED: IRON SUCROSE COMPLEX 100 MG/5 ML ML IV NR (10:00)
[2022-02-23] MEDS: NOREPINEPHRINE 32 MG in DEXT 5% WATER 218 ML IV PRN (11:47)
[2022-02-23] MEDS: EPOETIN ALFA-EPBX 4,000 UNIT/ML VIAL SUBCUT SCH (21:58)
[2022-02-23] MEDS: ATORVASTATIN CALCIUM 10MG TABLET PO SCH (21:58)
[2022-02-23] MEDS: FENTANYL 2500MCG/250ML PMX 250 ML IV PRN (21:59)
[2022-02-24] VITALS (59 sets, daily range): BP systolic 104–149; BP diastolic 51–99
[2022-02-24] MEDS: IPRATROPIUM/ALBUTEROL 0.5-3(2.5)MG/3ML NEB HHN SCH ×4 (02:45→20:44)
[2022-02-24] MEDS: HYDRALAZINE HCL 50MG TABLET PO SCH ×3 (05:37→21:54)
[2022-02-24] MEDS: LEVOTHYROXINE SODIUM 100MCG TABLET PO SCH (05:37)
[2022-02-24 05:54] LABS: BASOPHILS % 0.4 % (0.0-2.0); EOSINOPHILS % 1.8 % (0.0-5.0); HEMATOCRIT. 22.3 % (42.0-52.0); HEMOGLOBIN. 7.3 g/dL (14.0-18.0); LYMPHOCYTES % 14.3 % (20.0-50.0); MEAN CORPUSCULAR HEMOGLOBIN 31.8 pg (28.0-32.0); MEAN CORPUSCULAR VOLUME 97.2 fL (80.0-94.0); MEAN PLATELET VOLUME 9.4 fl (7.4-10.4); NEUTROPHILS % 78.5 % (40.0-76.0); PLATELET 120 x1000/uL (130-400); RED BLOOD CELL COUNT 2.29 mill/uL (4.7-6.1); RED CELL DISTRIBUTION WIDTH 14.8 % (11.6-14.6)
[2022-02-24 07:46] LABS: BG BASE EXCESS 2.4 mmol/L (-2.0-2.0); BG CARBOXYHEMOGLOBIN 0.4 % (0.5-1.5); BG DEOXYHEMOGLOBIN 1.7 % (0.0-5.0); BG METHEMOGLOBIN 0.2 % (0.0-1.5); BG OXYGEN SATURATION 98.3 % (92.0-98.5); BG OXYHEMOGLOBIN 97.7 % (94.0-97.0); BG PCO2 41.7 mmHg (35.0-45.0); BG PH 7.429 (7.350-7.450); BG PO2 133.8 mmHg (75.0-100.0); BG SAMPLE SITE RIGHT RADIAL; BG TOTAL HEMOGLOBIN 6.7 g/dL (12.0-18.0); BG VENT MODE VENT - AC
[2022-02-24] MEDS: FAMOTIDINE 20MG TABLET PO SCH (08:37)
[2022-02-24] MEDS: DULOXETINE HCL 30MG DR CAPSULE PO SCH (08:37)
[2022-02-24] MEDS: CARVEDILOL 6.25 MG TABLET PO SCH (08:37)
[2022-02-24] MEDS: AMIODARONE HCL 200 MG TABLET PO SCH (08:37)
[2022-02-24 10:01] LABS: BG BASE EXCESS 0.1 mmol/L (-2.0-2.0); BG CARBOXYHEMOGLOBIN 0.1 % (0.5-1.5); BG DEOXYHEMOGLOBIN 3.1 % (0.0-5.0); BG HCO3 ACT 26.2 mmol/L (22.0-26.0); BG OXYGEN SATURATION 96.9 % (92.0-98.5); BG OXYHEMOGLOBIN 96.8 % (94.0-97.0); BG PCO2 48.8 mmHg (35.0-45.0); BG PH 7.347 (7.350-7.450); BG SAMPLE SITE RIGHT RADIAL; BG VENT MODE VENT - CPAP
[2022-02-24] MEDS: MIDODRINE HCL 2.5MG TABLET PO SCH ×3 (10:25→16:13)
[2022-02-24] MEDS ORDERED: THROAT LOZENGES-BENZOCAINE/MENTH/CETYLPYRD CL LOZENGES MM PRN (20:00)
[2022-02-24] MEDS: ATORVASTATIN CALCIUM 10MG TABLET PO SCH (21:53)
[2022-02-25] VITALS (17 sets, daily range): BP systolic 108–145; BP diastolic 59–82
[2022-02-25] MEDS: IPRATROPIUM/ALBUTEROL 0.5-3(2.5)MG/3ML NEB HHN SCH ×3 (00:54→15:20)
[2022-02-25] MEDS: HYDRALAZINE HCL 50MG TABLET PO SCH ×3 (06:00→21:15)
[2022-02-25] MEDS: LEVOTHYROXINE SODIUM 100MCG TABLET PO SCH (06:09)
[2022-02-25 06:23] LABS: BASOPHILS % 0.3 % (0.0-2.0); EOSINOPHILS % 2.2 % (0.0-5.0); HEMATOCRIT. 22.9 % (42.0-52.0); HEMOGLOBIN. 7.5 g/dL (14.0-18.0); LYMPHOCYTES % 14.3 % (20.0-50.0); MEAN CORPUSCULAR HEMOGLOBIN 31.7 pg (28.0-32.0); MEAN CORPUSCULAR VOLUME 96.9 fL (80.0-94.0); MEAN PLATELET VOLUME 9.6 fl (7.4-10.4); MONOCYTES % 5.7 % (2.0-8.0); NEUTROPHILS % 77.5 % (40.0-76.0); PLATELET 105 x1000/uL (130-400); RED BLOOD CELL COUNT 2.37 mill/uL (4.7-6.1); RED CELL DISTRIBUTION WIDTH 14.9 % (11.6-14.6)
[2022-02-25] MEDS: AMIODARONE HCL 200 MG TABLET PO SCH (08:18)
[2022-02-25] MEDS: FAMOTIDINE 20MG TABLET PO SCH (08:18)
[2022-02-25] MEDS: MIDODRINE HCL 2.5MG TABLET PO SCH ×3 (08:18→17:00)
[2022-02-25] MEDS: DULOXETINE HCL 30MG DR CAPSULE PO SCH (08:18)
[2022-02-25 08:25] LABS: BG BASE EXCESS -1.8 mmol/L (-2.0-2.0); BG CARBOXYHEMOGLOBIN 0.6 % (0.5-1.5); BG DEOXYHEMOGLOBIN 6.1 % (0.0-5.0); BG FRACTION INSPIRED OXYGEN 40; BG HCO3 ACT 24.1 mmol/L (22.0-26.0); BG METHEMOGLOBIN 0.3 % (0.0-1.5); BG OXYGEN SATURATION 93.8 % (92.0-98.5); BG PCO2 46.4 mmHg (35.0-45.0); BG PH 7.333 (7.350-7.450); BG PO2 78.3 mmHg (75.0-100.0); BG SAMPLE SITE RIGHT RADIAL; BG TOTAL HEMOGLOBIN 7.7 g/dL (12.0-18.0); BG TOTAL RESPIRATORY RATE 36 b/min; BG VENT MODE MASK - BIPAP
[2022-02-25] MEDS ORDERED: IRON SUCROSE COMPLEX 100 MG/5 ML ML IV NR (09:30)
[2022-02-25] MEDS: NOREPINEPHRINE 32 MG in DEXT 5% WATER 218 ML IV PRN (10:11)
[2022-02-25] MEDS: ATORVASTATIN CALCIUM 10MG TABLET PO SCH (21:14)
[2022-02-25] MEDS: EPOETIN ALFA-EPBX 4,000 UNIT/ML VIAL SUBCUT SCH (21:14)
[2022-02-26] VITALS (12 sets, daily range): BP systolic 111–140; BP diastolic 57–73
[2022-02-26] MEDS: IPRATROPIUM/ALBUTEROL 0.5-3(2.5)MG/3ML NEB HHN SCH ×4 (02:44→21:09)
[2022-02-26] MEDS: HYDRALAZINE HCL 50MG TABLET PO SCH ×3 (06:05→21:31)
[2022-02-26 07:04] LABS: HEMATOCRIT. 23.6 % (42.0-52.0); HEMOGLOBIN. 7.8 g/dL (14.0-18.0); MEAN CORPUSCULAR VOLUME 97.5 fL (80.0-94.0); PLATELET 105 x1000/uL (130-400); RED BLOOD CELL COUNT 2.42 mill/uL (4.7-6.1)
[2022-02-26] MEDS: AMIODARONE HCL 200 MG TABLET PO SCH (09:04)
[2022-02-26] MEDS: LEVOTHYROXINE SODIUM 100MCG TABLET PO SCH (09:04)
[2022-02-26] MEDS: DULOXETINE HCL 30MG DR CAPSULE PO SCH (09:04)
[2022-02-26] MEDS: FAMOTIDINE 20MG TABLET PO SCH (09:04)
[2022-02-26] MEDS: MIDODRINE HCL 2.5MG TABLET PO SCH ×3 (09:06→17:04)
[2022-02-26 09:49] LABS: BG BASE EXCESS 4.2 mmol/L (-2.0-2.0); BG CARBOXYHEMOGLOBIN 0.3 % (0.5-1.5); BG DEOXYHEMOGLOBIN 7.7 % (0.0-5.0); BG FRACTION INSPIRED OXYGEN 44; BG HCO3 ACT 29.4 mmol/L (22.0-26.0); BG METHEMOGLOBIN 0.1 % (0.0-1.5); BG OXYGEN SATURATION 92.3 % (92.0-98.5); BG OXYHEMOGLOBIN 91.9 % (94.0-97.0); BG PCO2 48.7 mmHg (35.0-45.0); BG PH 7.399 (7.350-7.450); BG PO2 64.1 mmHg (75.0-100.0); BG SAMPLE SITE RIGHT RADIAL; BG VENT MODE NASAL CANNULA
[2022-02-26] MEDS: SODIUM CHLORIDE 0.45% 1,000 ML IV SCH (17:05)
[2022-02-26 18:20] LABS: NUCLEATED RED BLOOD CELLS 2 /100 WBC; PLATELET ESTIMATE SLIGHTLY DECREASED
[2022-02-26] MEDS: ATORVASTATIN CALCIUM 10MG TABLET PO SCH (21:30)
[2022-02-27] VITALS (12 sets, daily range): BP systolic 100–131; BP diastolic 67–79
[2022-02-27] MEDS: IPRATROPIUM/ALBUTEROL 0.5-3(2.5)MG/3ML NEB HHN SCH ×4 (02:36→21:11)
[2022-02-27] MEDS: HYDRALAZINE HCL 50MG TABLET PO SCH ×3 (06:16→22:07)
[2022-02-27 07:07] LABS: HEMATOCRIT. 24.7 % (42.0-52.0); HEMOGLOBIN. 8.1 g/dL (14.0-18.0); MEAN CORPUSCULAR HEMOGLOBIN 31.6 pg (28.0-32.0); MEAN CORPUSCULAR VOLUME 96.7 fL (80.0-94.0); MEAN PLATELET VOLUME 10.3 fl (7.4-10.4); PLATELET 105 x1000/uL (130-400); RED BLOOD CELL COUNT 2.56 mill/uL (4.7-6.1); RED CELL DISTRIBUTION WIDTH 14.8 % (11.6-14.6)
[2022-02-27] MEDS: FAMOTIDINE 20MG TABLET PO SCH (08:55)
[2022-02-27] MEDS: DULOXETINE HCL 30MG DR CAPSULE PO SCH (08:55)
[2022-02-27] MEDS: AMIODARONE HCL 200 MG TABLET PO SCH (08:55)
[2022-02-27] MEDS: LEVOTHYROXINE SODIUM 100MCG TABLET PO SCH (08:55)
[2022-02-27] MEDS: MIDODRINE HCL 2.5MG TABLET PO SCH ×3 (08:57→17:00)
[2022-02-27] MEDS ORDERED: IRON SUCROSE COMPLEX 100 MG/5 ML ML IV NR (09:00)
[2022-02-27] MEDS: SODIUM CHLORIDE 0.45% 1,000 ML IV SCH (11:51)
[2022-02-27] MEDS: CEFEPIME 1,000 MG in DEXTROSE 5% WATER 50 ML IV SCH (18:17)
[2022-02-27] MEDS ORDERED: EPOETIN ALFA 4000UNITS/ML VIAL SUBCUT SCH (21:00)
[2022-02-27] MEDS: EPOETIN ALFA-EPBX 4,000 UNIT/ML VIAL SUBCUT SCH (22:07)
[2022-02-27] MEDS: ATORVASTATIN CALCIUM 10MG TABLET PO SCH (22:08)
[2022-02-28] VITALS (21 sets, daily range): BP systolic 83–125; BP diastolic 53–74
[2022-02-28] MEDS: IPRATROPIUM/ALBUTEROL 0.5-3(2.5)MG/3ML NEB HHN SCH ×4 (01:05→20:06)
[2022-02-28 04:12] LABS: PLATELET ESTIMATE DECREASED
[2022-02-28] MEDS: SODIUM CHLORIDE 0.45% 1,000 ML IV SCH (04:41)
[2022-02-28] MEDS: LEVOTHYROXINE SODIUM 100MCG TABLET PO SCH (06:31)
[2022-02-28] MEDS: IPRATROPIUM/ALBUTEROL 0.5-3(2.5)MG/3ML NEB HHN PRN (06:55)
[2022-02-28] MEDS: AMIODARONE HCL 200 MG TABLET PO SCH (08:05)
[2022-02-28] MEDS: DULOXETINE HCL 30MG DR CAPSULE PO SCH (08:05)
[2022-02-28] MEDS: FAMOTIDINE 20MG TABLET PO SCH (08:05)
[2022-02-28] MEDS: MIDODRINE HCL 2.5MG TABLET PO SCH ×3 (08:08→17:00)
[2022-02-28] MEDS: DEXTROSE 5% WATER 1,000 ML IV SCH (11:25)
[2022-02-28 12:04] LABS: BASOPHILS % 0.4 % (0.0-2.0); HEMATOCRIT. 23.5 % (42.0-52.0); HEMOGLOBIN. 7.5 g/dL (14.0-18.0); LYMPHOCYTES % 17.8 % (20.0-50.0); MEAN CORPUSCULAR HEMOGLOBIN 31.7 pg (28.0-32.0); MONOCYTES % 4.7 % (2.0-8.0); NEUTROPHILS % 76.1 % (40.0-76.0); PLATELET 76 x1000/uL (130-400); RED BLOOD CELL COUNT 2.37 mill/uL (4.7-6.1); RED CELL DISTRIBUTION WIDTH 14.8 % (11.6-14.6)
[2022-02-28 15:55] LABS: BG BASE EXCESS -0.5 mmol/L (-2.0-2.0); BG CARBOXYHEMOGLOBIN 0.2 % (0.5-1.5); BG DEOXYHEMOGLOBIN 6.6 % (0.0-5.0); BG FRACTION INSPIRED OXYGEN 50; BG HCO3 ACT 23.6 mmol/L (22.0-26.0); BG METHEMOGLOBIN 0.1 % (0.0-1.5); BG OXYGEN SATURATION 93.4 % (92.0-98.5); BG OXYHEMOGLOBIN 93.1 % (94.0-97.0); BG PH 7.435 (7.350-7.450); BG PO2 71.2 mmHg (75.0-100.0); BG SAMPLE SITE RIGHT BRACHIAL; BG TOTAL HEMOGLOBIN 7.8 g/dL (12.0-18.0); BG TOTAL RESPIRATORY RATE 27 b/min; BG VENT MODE MASK - BIPAP
[2022-02-28] MEDS: CEFEPIME 1,000 MG in DEXTROSE 5% WATER 50 ML IV SCH (17:52)
[2022-02-28] MEDS: ATORVASTATIN CALCIUM 10MG TABLET PO SCH (21:00)
[2022-03-01] VITALS (13 sets, daily range): BP systolic 94–124; BP diastolic 54–76
[2022-03-01] MEDS: IPRATROPIUM/ALBUTEROL 0.5-3(2.5)MG/3ML NEB HHN SCH ×3 (02:06→13:40)
[2022-03-01 06:15] LABS: HEMATOCRIT. 24.2 % (42.0-52.0); HEMOGLOBIN. 7.8 g/dL (14.0-18.0); MEAN CORPUSCULAR HEMOGLOBIN 31.5 pg (28.0-32.0); MEAN CORPUSCULAR VOLUME 97.2 fL (80.0-94.0); MEAN PLATELET VOLUME 10.4 fl (7.4-10.4); PLATELET 86 x1000/uL (130-400); RED BLOOD CELL COUNT 2.49 mill/uL (4.7-6.1); RED CELL DISTRIBUTION WIDTH 15.2 % (11.6-14.6)
[2022-03-01] MEDS: LEVOTHYROXINE SODIUM 100MCG TABLET PO SCH (07:30)
[2022-03-01] MEDS ORDERED: ATROPINE SULFATE 1MG/10ML SYR ONE (08:21)
[2022-03-01] MEDS ORDERED: CALCIUM CHLORIDE 1GM/10ML SYR IV ONE (08:21)
[2022-03-01] MEDS ORDERED: SODIUM BICARBONATE 8.4% 1 MEQ/ML 50ML SYR IV ONE (08:21)
[2022-03-01] MEDS ORDERED: EPINEPHRINE 0.1MG/ML (1:10,000) 10ML SYR ONE (08:21)
[2022-03-01] MEDS ORDERED: DEXTROSE 50% WATER 50ML SYRINGE IV ONE (08:21)
[2022-03-01 08:45] LABS: BG BASE EXCESS -2.8 mmol/L (-2.0-2.0); BG CARBOXYHEMOGLOBIN 0.3 % (0.5-1.5); BG DEOXYHEMOGLOBIN 2.5 % (0.0-5.0); BG FRACTION INSPIRED OXYGEN 90; BG HCO3 ACT 21.9 mmol/L (22.0-26.0); BG OXYGEN SATURATION 97.5 % (92.0-98.5); BG OXYHEMOGLOBIN 97.2 % (94.0-97.0); BG PCO2 37.1 mmHg (35.0-45.0); BG PH 7.389 (7.350-7.450); BG PO2 111.8 mmHg (75.0-100.0); BG TOTAL HEMOGLOBIN 8.1 g/dL (12.0-18.0); BG VENT MODE MASK - BIPAP
[2022-03-01] MEDS: MIDODRINE HCL 2.5MG TABLET PO SCH ×2 (08:56→12:08)
[2022-03-01] MEDS: DULOXETINE HCL 30MG DR CAPSULE PO SCH (08:56)
[2022-03-01] MEDS: AMIODARONE HCL 200 MG TABLET PO SCH (08:56)
[2022-03-01] MEDS: FAMOTIDINE 20MG TABLET PO SCH (08:56)
[2022-03-01] MEDS: DEXTROSE 5% WATER 1,000 ML IV SCH (10:30)
[2022-03-01 11:08] LABS: NUCLEATED RED BLOOD CELLS 4 /100 WBC
[2022-03-01 11:09] LABS: PLATELET ESTIMATE DECREASED
[2022-03-01] MEDS ORDERED: MORPHINE SULFATE 2 MG/ML CPJ (NOT FOR IM USE) IV SCH (11:15)
[2022-03-01] MEDS ORDERED: NALOXONE HCL 0.4MG/ML VIAL IV PRN (11:15)
[2022-03-01] MEDS ORDERED: HYDROCODONE/ACETAMINOPHEN 5/325MG TABLET PO PRN (11:15)
[2022-03-01] MEDS ORDERED: NOREPINEPHRINE 32 MG in DEXT 5% WATER 218 ML IV PRN (17:30)
[2022-03-01] MEDS ORDERED: PHENYLEPHRINE 100 MG in DEXT 5% WATER 240 ML IV PRN (17:30)
[2022-03-01] MEDS ORDERED: VASOPRESSIN 20 UNIT in SODIUM CHLORIDE 0.9% 99 ML IV PRN (17:30)
[2022-03-01] MEDS ORDERED: EPINEPHRINE 10 MG in SODIUM CHLORIDE 0.9% 240 ML IV PRN (18:00)
[2022-03-01] MEDS ORDERED: SODIUM BICARBONATE 150 MEQ in DEXTROSE 5% WATER 1,000 ML IV SCH (19:00)
== END 2022-03-01 18:32 | DRG 207 ==
LOC: ER 21:46 → 5EST 23:39 → ENRESERV 02-18 01:37 → MICUNO 02-20 15:55 → 5EST 02-25 15:04 → MICUNO 03-01 17:23
PROVIDERS: ADMIT Internal Medicine; ATTEND Internal Medicine
PROC: 5A09457 Assistance with Respiratory Ventilation, 24-96 Consecutive Hours, Continuous Positive Airway Pressure (ICD-10-PCS; 2022-02-17)
PROC: 02H633Z Insertion of Infusion Device into Right Atrium, Percutaneous Approach (ICD-10-PCS; 2022-02-19)
PROC: B548ZZA Ultrasonography of Superior Vena Cava, Guidance (ICD-10-PCS; 2022-02-19)
PROC: 5A1955Z Respiratory Ventilation, Greater than 96 Consecutive Hours (ICD-10-PCS; principal; 2022-02-20)
PROC: 0BH17EZ Insertion of Endotracheal Airway into Trachea, Via Natural or Artificial Opening (ICD-10-PCS; 2022-02-20)
PROC: 5A1D70Z Performance of Urinary Filtration, Intermittent, Less than 6 Hours Per Day (ICD-10-PCS; 2022-02-20)
PROC: 5A12012 Performance of Cardiac Output, Single, Manual (ICD-10-PCS; 2022-02-20)
PROC: 5A1D70Z Performance of Urinary Filtration, Intermittent, Less than 6 Hours Per Day (ICD-10-PCS; 2022-02-21)
PROC: 5A1D70Z Performance of Urinary Filtration, Intermittent, Less than 6 Hours Per Day (ICD-10-PCS; 2022-02-23)
PROC: 5A09357 Assistance with Respiratory Ventilation, Less than 24 Consecutive Hours, Continuous Positive Airway Pressure (ICD-10-PCS; 2022-02-24)
PROC: 5A1D70Z Performance of Urinary Filtration, Intermittent, Less than 6 Hours Per Day (ICD-10-PCS; 2022-02-25)
PROC: 5A09457 Assistance with Respiratory Ventilation, 24-96 Consecutive Hours, Continuous Positive Airway Pressure (ICD-10-PCS; 2022-02-26)
PROC: 5A1D70Z Performance of Urinary Filtration, Intermittent, Less than 6 Hours Per Day (ICD-10-PCS; 2022-02-27)
PROC: 0BH17EZ Insertion of Endotracheal Airway into Trachea, Via Natural or Artificial Opening (ICD-10-PCS; 2022-03-01)
DX: J96.01 Acute respiratory failure with hypoxia (principal); A41.9 Sepsis, unspecified organism; G93.41 Metabolic encephalopathy; I50.43 Acute on chronic combined systolic (congestive) and diastolic (congestive) heart failure; J18.9 Pneumonia, unspecified organism; I21.4 Non-ST elevation (NSTEMI) myocardial infarction; E44.0 Moderate protein-calorie malnutrition; N17.9 Acute kidney failure, unspecified; I48.92 Unspecified atrial flutter; N18.4 Chronic kidney disease, stage 4 (severe); I13.0 Hypertensive heart and chronic kidney disease with heart failure and stage 1 through stage 4 chronic kidney disease, or unspecified chronic kidney disease; E87.1 Hypo-osmolality and hyponatremia; I48.20 Chronic atrial fibrillation, unspecified; E87.2 Acidosis; I46.9 Cardiac arrest, cause unspecified; I48.0 Paroxysmal atrial fibrillation; I27.20 Pulmonary hypertension, unspecified; E11.22 Type 2 diabetes mellitus with diabetic chronic kidney disease; E11.21 Type 2 diabetes mellitus with diabetic nephropathy; D50.9 Iron deficiency anemia, unspecified; E87.5 Hyperkalemia; Z20.822 Contact with and (suspected) exposure to COVID-19; D63.1 Anemia in chronic kidney disease; E78.5 Hyperlipidemia, unspecified; E03.9 Hypothyroidism, unspecified; I25.10 Atherosclerotic heart disease of native coronary artery without angina pectoris; M10.9 Gout, unspecified; R13.10 Dysphagia, unspecified; E87.70 Fluid overload, unspecified; Z79.899 Other long term (current) drug therapy; Z86.73 Personal history of transient ischemic attack (TIA), and cerebral infarction without residual deficits; I25.2 Old myocardial infarction; Z68.31 Body mass index [BMI] 31.0-31.9, adult; Z99.2 Dependence on renal dialysis; Z91.15 Patient's noncompliance with renal dialysis; Z79.01 Long term (current) use of anticoagulants
CPT/HCPCS: 31500; 36415; 36556; 36600; 71045; 71250; 76770; 76937; 78580; 80048; 80053; 80061; 82375; 82607; 82728; 82746; 82805; 82962; 83540; 83550; 83605; 83735; 83880; 83970; 84100; 84145; 84443; 84478; 84484; 85014; 85018; 85025; 85044; 85379; 86705; 86709; 86803; 87340; 87426; 87804; 92610; 92950; 93005; 93306; 93970; 94002; 94003; 94640; 94644; 94660; 97162; 99291; C1752; J0456; J0461; J0692; J0696; J0885; J1940; J2370; J2704; J3010; J3490; J7060; J7070; A4315